=== PATIENT | female | born 1965 | race Caucasian/White ===

== ENCOUNTER 2020-11-15 11:41 | Outpatient (CLI) | payer BC, SELFPAY ==
[2020-11-15 12:00] VITALS: BP 121/73; PULSE 82; TEMP 36.9; O2SAT 96; BMI 28.8
[2020-11-15 13:30] VITALS: BP 112/77; PULSE 69; RESP 18; O2SAT 96
[2020-11-15 16:33] VITALS: BP 106/75; PULSE 78; RESP 18; TEMP 37.1; O2SAT 93
== END 2020-11-15 11:42 | disposition home or self-care (01) ==
LOC: OPS 11:44
PROVIDERS: PCP Family Medicine; Visit Provider Nurse Practitioner Family
DX: U07.1 COVID-19 (principal)
CPT/HCPCS: 96365